=== PATIENT | female | born 1985 | race Caucasian/White ===

== ENCOUNTER 2018-12-25 18:20 | Emergency (ER) | payer BC ==
[~2018-12-25] VITALS: Ht 152.4 cm; Wt 59.0 kg
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
--- NOTE | 2018-12-25 18:35 | NUR ---
SEEN AND EXAMINED BY TANNER CHACKO
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
--- NOTE | 2018-12-25 19:21 | NUR ---
REC'D REPORT FROM FLORENCE PRICE FOR [facility]
--- NOTE | 2018-12-25 19:31 | NUR ---
REPORT GIVEN TO ALBERT MILLER FOR [facility].
[2018-12-25 20:26] VITALS: BP 122/87
--- NOTE | 2018-12-25 20:26 | NUR ---
Patient discharged to home in stable condition. Written and verbal after care instructions given. Patient verbalizes understanding of instruction.Pt ambulatory with a steady gait
== END 2018-12-25 20:37 | disposition home or self-care (01) ==
LOC: ER 18:24
DX: M54.2 Cervicalgia (principal); M54.5 Low back pain; M25.512 Pain in left shoulder; V49.49XA Driver injured in collision with other motor vehicles in traffic accident, initial encounter; Y93.89 Activity, other specified; Y92.488 Other paved roadways as the place of occurrence of the external cause; Y99.8 Other external cause status
CPT/HCPCS: 72050-TC; 72110-TC; 73030-TC; 84703-TC